=== PATIENT | male | born 1980 | race Caucasian/White ===

== ENCOUNTER 2018-01-20 16:41 | Emergency (ER) | payer BC ==
[~2018-01-20] VITALS: Ht 177.8 cm; Wt 107.8 kg
[2018-01-20 17:47] LABS: HEMATOCRIT 40.2 % (38.0-50.0); MCH 29.4 PG (29.0-34.0); MCHC 34.8 G/DL (30.0-36.0); MCV 84.5 FL (86-99); PLATELET COUNT 202 K/uL (156-360); RBC DIS.WIDTH-CV 13.1 % (11.8-14.6); RBC DIS.WIDTH-SD 40.1 % (39-53); RED BLOOD COUNT 4.76 M/uL (4.00-5.50); WHITE BLOOD COUNT 6.8 K/uL (4.1-10.2)
[2018-01-20 17:57] LABS: D-DIMER ELISA < 150.00 ng/mLDDU (<230)
[2018-01-20 18:02] LABS: CHLORIDE 108 mEq/L (99-109); POTASSIUM 3.8 mEq/L (3.7-5.4); SODIUM 138 mEq/L (136-147)
[2018-01-20 18:03] LABS: GLUCOSE 99 mg/dL (70-99)
[2018-01-20 18:07] LABS: GFR ESTIMATE (CALCULATED) > 59 mL/min/ (58.99-99999)
[2018-01-20 18:08] LABS: UREA NITROGEN (BUN) 14 mg/dL (9-23)
[2018-01-20 18:15] LABS: TROP-I INTERPRETATION NEGATIVE; TROPONIN-I < 0.01 ng/mL (0.0-0.30)
[2018-01-20 19:17] VITALS: BP 130/85
== END 2018-01-20 19:18 | disposition home or self-care (01) ==
LOC: EME 16:41
PROVIDERS: Nurse Practitioner Family
DX: R07.89 Other chest pain (principal); F41.9 Anxiety disorder, unspecified; I10 Essential (primary) hypertension; G47.33 Obstructive sleep apnea (adult) (pediatric); Z88.2 Allergy status to sulfonamides
CPT/HCPCS: 71046; 80048; 84484; 85027; 85379; 93005; 99281; 99285

== ENCOUNTER 2018-01-23 19:40 | Emergency (ER) | payer BC ==
[~2018-01-23] VITALS: Ht 177.8 cm; Wt 106.5 kg
[2018-01-23 20:27] LABS: HEMATOCRIT 41.3 % (38.0-50.0); HEMOGLOBIN 14.8 G/DL (12.5-16.6); MCH 29.5 PG (29.0-34.0); MCHC 35.8 G/DL (30.0-36.0); MCV 82.4 FL (86-99); PLATELET COUNT 246 K/uL (156-360); RBC DIS.WIDTH-CV 12.9 % (11.8-14.6); RBC DIS.WIDTH-SD 38.5 % (39-53); RED BLOOD COUNT 5.01 M/uL (4.00-5.50)
[2018-01-23 20:36] LABS: CHLORIDE 105 mEq/L (99-109); POTASSIUM 3.9 mEq/L (3.7-5.4); SODIUM 139 mEq/L (136-147)
[2018-01-23 20:37] LABS: GLUCOSE 96 mg/dL (70-99)
[2018-01-23 20:41] LABS: CREATININE 1.2 mg/dL (0.6-1.3); GFR ESTIMATE (CALCULATED) > 59 mL/min/ (58.99-99999)
[2018-01-23 20:42] LABS: UREA NITROGEN (BUN) 12 mg/dL (9-23)
[2018-01-23 20:48] LABS: TROP-I INTERPRETATION NEGATIVE; TROPONIN-I < 0.01 ng/mL (0.0-0.30)
[2018-01-23 21:42] LABS: APPEARANCE CLEAR ((CLEAR)); BILIRUBIN NEGATIVE; BLOOD MODERATE; COLOR YELLOW ((YELLOW)); GLUCOSE (STRIP) NEGATIVE; KETONES NEGATIVE; LEUKOCYTES NEGATIVE; NITRITE NEGATIVE; PROTEIN (STRIP) NEGATIVE; SPECIFIC GRAVITY 1.017 (1.000-1.030); UROBILINOGEN 0.2 MG/DL (0.2-1.0)
[2018-01-23 21:52] LABS: BACTERIA NONE SEEN /HPF; EPITHELIAL CELLS RARE /HPF; MUCUS TRACE /LPF; WHITE BLOOD CELLS 0-5 /HPF (0-5)
[2018-01-23 23:35] LABS: TROP-I INTERPRETATION NEGATIVE; TROPONIN-I < 0.01 ng/mL (0.0-0.30)
[2018-01-24 00:11] VITALS: BP 130/90
[2018-01-25] MEDS ORDERED: HYDROXYZINE HCL25 MG PO (12:08)
[2018-01-25] MEDS ORDERED: ASPIRIN81 M2 PO (12:08)
[2018-01-25] MEDS ORDERED: ZESTORETIC 20-1 EAC1 PO (12:08)
== END 2018-01-24 00:11 | disposition home or self-care (01) ==
LOC: EME 19:40
PROVIDERS: Physician Assistant
DX: R07.89 Other chest pain (principal); R31.21 Asymptomatic microscopic hematuria; F41.9 Anxiety disorder, unspecified; F17.200 Nicotine dependence, unspecified, uncomplicated; Z88.2 Allergy status to sulfonamides
CPT/HCPCS: 71046; 80048; 81003; 84484; 85027; 93005; 99281; 99284

== ENCOUNTER 2018-01-28 09:57 | Day surgery (SDC) | payer BC ==
[~2018-01-28] VITALS: Ht 177.8 cm; Wt 105.0 kg
[~2018-01-28 09:57] MED LIST: ASPIRIN81 M2 PO; HYDROXYZINE HCL25 MG PO; ZESTORETIC 20-1 EAC1 PO
== END 2018-01-28 20:05 | disposition home or self-care (01) ==
LOC: CATH 09:57
PROC: B2111ZZ Fluoroscopy of Multiple Coronary Arteries using Low Osmolar Contrast (ICD-10-PCS; principal; 2018-01-28)
PROC: 4A023N7 Measurement of Cardiac Sampling and Pressure, Left Heart, Percutaneous Approach (ICD-10-PCS; principal; 2018-01-28)
PROC: B2151ZZ Fluoroscopy of Left Heart using Low Osmolar Contrast (ICD-10-PCS; principal; 2018-01-28)
DX: I25.10 Atherosclerotic heart disease of native coronary artery without angina pectoris (principal); I10 Essential (primary) hypertension; G47.33 Obstructive sleep apnea (adult) (pediatric); Z82.49 Family history of ischemic heart disease and other diseases of the circulatory system; Z88.2 Allergy status to sulfonamides; Z79.82 Long term (current) use of aspirin; E66.9 Obesity, unspecified; Z68.33 Body mass index [BMI] 33.0-33.9, adult
CPT/HCPCS: C1769; C1887; J1644; J2250; J3010; J7040